=== PATIENT | male | born 1955 | race Caucasian/White ===

== ENCOUNTER 2017-01-02 14:58 | Inpatient (IN) | payer OTHER ==
[~2017-01-02] VITALS: Ht 193 cm; Wt 88.5 kg
--- NOTE | 2017-01-02 15:15 | NUR ---
PT LIGIAA FOR S/P SEIZURE FROM [facility]. PT CANNOT REMEMBER WHAT HAPPENED-POST TICTAL. VSS. MINIMAL ORAL TRAUMA NOTED. SEEN BY MD. SAFETY AND COMFORT MEASUREES PROVIDED. SEIZURE PRECAUTIONS IMPLEMENTED. WILL MONITOR.
[2017-01-02] MEDS ORDERED: LEVETIRACETAM (500MG) 500 MG in IV NS 0.9% 100 ML IV STA (15:22)
[2017-01-02 15:39] LABS: BASOPHILS # (AUTO) 0.2 /CMM (0.0-0.2); BASOPHILS % (AUTO) 1.2 % (0.0-2.0); EOSINOPHILS % (AUTO) 0.2 % (0.0-6.0); HEMATOCRIT 47 % (39-51); HEMOGLOBIN 15.7 g/dL (13.5-17.5); LYMPHOCYTES # (AUTO) 2.7 /CMM (0.8-4.8); LYMPHOCYTES % (AUTO) 18.6 % (20.0-44.0); MEAN CORPUSCULAR HEMOGLOBIN 31 PG (26.0-33.0); MEAN CORPUSCULAR HGB CONC 34 g/dl (31.0-36.0); MEAN CORPUSCULAR VOLUME 92 fL (80-96); MONOCYTES # (AUTO) 0.9 /CMM (0.1-1.30); MONOCYTES % (AUTO) 6.4 % (2.0-12.0); NEUTROPHILS # (AUTO) 10.9 /CMM (1.8-8.9); NEUTROPHILS % (AUTO) 73.6 % (43.0-81.0); PLATELET COUNT (AUTO) 300 /CMM (150-450); RDW COEFFICIENT OF VARIATION 14.2 (11.5-15.0); RED BLOOD CELL COUNT(AUTO) 5.12 MIL/uL (4.5-6.0); WHITE BLOOD COUNT (AUTO) 14.8 K/uL (4.3-11.0)
--- NOTE | 2017-01-02 15:40 | NUR ---
IV ACCESS STARTED. BLOOD DRAW FOR LABS. PT MEDICATED ORDERED.
[2017-01-02 15:55] LABS: ALANINE AMINOTRANSFERASE 44 U/L (12-78); ALBUMIN 3.9 g/dL (3.4-5.0); ALKALINE PHOSPHATASE 156 U/L (46-116); ASPARTATE AMINOTRANSFERASE 62 U/L (15-37); BILIRUBIN,DIRECT 0.2 mg/dL (0.0-0.2); BILIRUBIN,TOTAL 0.9 mg/dL (0.2-1.0); CALCIUM, SERUM 9.3 mg/dL (8.5-10.1); CARBON DIOXIDE 13 mmol/L (21-32); CHLORIDE 104 mmol/L (98-107); CREATININE 1.5 mg/dL (0.6-1.3); GLUCOSE 197 mg/dL (74-106); SODIUM SERUM 142 mmol/L (136-145); UREA NITROGEN, BLOOD 6 mg/dL (7-18)
[2017-01-02 15:57] LABS: TROPONIN I < 0.017 ng/mL (0.00-0.056)
[2017-01-02 16:04] LABS: INR 1.01 (0.87-1.13); PROTHROMBIN TIME 10.5 SECS (9.5-12.7)
[2017-01-02 16:06] LABS: POTASSIUM 2.8 mmol/L (3.5-5.1)
[2017-01-02 16:14] LABS: CREATINE KINASE, TOTAL 230 U/L (39-308)
[2017-01-02 16:16] LABS: ALCOHOL, BLOOD < 3 mg/dL (0-0)
[2017-01-02 16:41] LABS: BILIRUBIN,URINE SMALL (NEGATIVE); BLOOD, URINE Negative Ery/uL (NEGATIVE); KETONES,URINE 15 (NEGATIVE); LEUKOCYTE ESTERASE ,URINE Negative (NEGATIVE); NITRITE, URINE Negative (NEGATIVE); PROTEIN,URINE 100 mg/dl (NEGATIVE); UGLUCOSE Negative (NEGATIVE)
[2017-01-02 16:44] LABS: APPEARANCE,URINE Hazy (CLEAR); COLOR,URINE Dark Yellow (YELLOW)
[2017-01-02] MEDS ORDERED: PIPERACILLIN /TAZOBACTAM 3.375 G in IV D5W 50 ML IV STA (16:48)
[2017-01-02] MEDS ORDERED: VANCOMYCIN 1 GM in IV D5W 250 ML IV STA (16:48)
[2017-01-02 16:53] LABS: BACTERIA,URINE None seen /HPF (None Seen); RBC,URINE 0-3 /HPF (0-2); SQUAMOUS EPITHELIAL CELL,UR Few /HPF (None Seen)
[2017-01-02 16:54] LABS: HYALINE CASTS, URINE Rare /LPF (None Seen); MUCUS,URINE Rare /LPF (None Seen)
[2017-01-02] MEDS ORDERED: IV NS 0.9% 1,000 ML BAG IV ONE (17:00)
[2017-01-02] MEDS ORDERED: MORP60TA4 PO (17:00)
[2017-01-02] MEDS ORDERED: OXYC30TA2 PO (17:00)
[2017-01-02] MEDS ORDERED: DULO60CA45 PO (17:00)
[2017-01-02] MEDS ORDERED: MAG HYDROX/AL HYDROX/SIMETH 30 ML UDC PO PRN (18:00)
[2017-01-02] MEDS ORDERED: MAGNESIUM HYDROXIDE 30 ML UDC PO PRN (18:00)
[2017-01-02] MEDS ORDERED: HYDROCODONE/APAP 5/325MG 1 EACH TABLET PO PRN (18:00)
[2017-01-02] MEDS ORDERED: ZOLPIDEM TARTRATE 5 MG TABLET PO PRN (18:00)
[2017-01-02] MEDS ORDERED: ONDANSETRON HCL/PF 4 MG/2 ML VIAL IVP PRN (18:00)
[2017-01-02] MEDS ORDERED: Z GUARD REMEDY 2 OZ OINT TP PRN (18:00)
[2017-01-02] MEDS ORDERED: MORPHINE SULFATE INJ 2 MG/ML DISP.SYRIN IV PRN (18:00)
[2017-01-02] MEDS ORDERED: ACETAMINOPHEN 325 MG TABLET PO PRN (18:00)
[2017-01-02] MEDS: POTASSIUM CL. PREMIX PERIPHER. 50 ML IV SCH ×2 (18:10→20:03)
[2017-01-02] MEDS ORDERED: POTASSIUM CL. PREMIX PERIPHER. 50 ML ONE (18:16)
[2017-01-02] MEDS ORDERED: POTASSIUM CL. PREMIX PERIPHER. 150 ML ONE (18:39)
--- NOTE | 2017-01-02 18:42 | NUR ---
REPORT GIVEN TO SUZANNE MABRY FOR TELE 120.
--- NOTE | 2017-01-02 18:42 | NUR ---
RN NOTES RECEIVED PT FROM ER VIA [facility] S/P SEIZURE. A&OX3, NO SOB OR DISTRESS NOTED ON ROOM AIR SATING 97%. RFA 20GUAGE IV SITE DRY AND INTACT. SKIN INTACT. WILL ENDORSE REPORT TO ONCOMING SHIFT.
[2017-01-02 18:47] VITALS: BP 152/90
--- NOTE | 2017-01-02 18:48 | NUR ---
REMAINING POTASSIUM BAGS ENDORSED TO SUZANNE MABRY
[2017-01-02] MEDS: IV NS 0.9% 1,000 ML IV PRN (18:54)
--- NOTE | 2017-01-02 19:10 | NUR ---
TAMMIE RN OPENING NOTES REPORT RECEIVED FROM AM RN. PATIENT A/A/O X3, ABLE TO MAKE NEEDS KNOWN. BREATHING EVEN AND UNLABORED, ON ROOM AIR. DENIES SOB OR DIFFICULTY BREATHING. ON TELE SINUS RHYTHM W/ PULSES PRESENT. SKIN INTACT AND WARM TO TOUCH. RIGHT FOREARM IV #20 INTACT AND PATENT W/ DRESSING CDI. IV FLUIDS RUNNING @ 100 ML/HR. PATIENT C/O LOWER BACK PAIN, PAIN MED TO BE GIVEN. SEIZURE AND SAFETY PRECAUTIONS IN PLACE W/ PADDED SIDE RAILS UP, BED LOCKED IN LOWEST POSITION AND CALL LIGHT WITHIN REACH. WILL CONTINUE TO MONITOR.
[2017-01-02 20:00] VITALS: BP 101/65
[2017-01-02] MEDS: MORPHINE SULFATE SR 15 MG TABLET.SA PO SCH (20:09)
[2017-01-02] MEDS: Potassium Chloride 10 MEQ, LIDOCAINE HCL/PF 1% 1 ML in IV D5W 50 ML IV SCH ×2 (21:38→22:28)
[2017-01-02] MEDS: LEVETIRACETAM (500MG) 500 MG in IV NS 0.9% 100 ML IV SCH (22:14)
[2017-01-02] MEDS: oxyCODONE HCL SR 20MG TAB.SR.12H PO SCH (22:29)
[2017-01-03] VITALS: BP 103/75
[2017-01-03 04:00] VITALS: BP 109/77
[2017-01-03 06:50] LABS: BASOPHILS % (AUTO) 0.4 % (0.0-2.0); EOSINOPHILS # (AUTO) 0.2 /CMM (0.0-0.7); EOSINOPHILS % (AUTO) 1.3 % (0.0-6.0); HEMATOCRIT 40 % (39-51); HEMOGLOBIN 13.4 g/dL (13.5-17.5); LYMPHOCYTES # (AUTO) 2.7 /CMM (0.8-4.8); LYMPHOCYTES % (AUTO) 22.5 % (20.0-44.0); MEAN CORPUSCULAR HEMOGLOBIN 31 PG (26.0-33.0); MEAN CORPUSCULAR HGB CONC 33 g/dl (31.0-36.0); MEAN CORPUSCULAR VOLUME 93 fL (80-96); MONOCYTES # (AUTO) 0.6 /CMM (0.1-1.30); MONOCYTES % (AUTO) 5.3 % (2.0-12.0); NEUTROPHILS # (AUTO) 8.4 /CMM (1.8-8.9); NEUTROPHILS % (AUTO) 70.5 % (43.0-81.0); PLATELET COUNT (AUTO) 223 /CMM (150-450); RDW COEFFICIENT OF VARIATION 15.7 (11.5-15.0); RED BLOOD CELL COUNT(AUTO) 4.36 MIL/uL (4.5-6.0)
--- NOTE | 2017-01-03 07:00 | NUR ---
RN NOTES RECEIVED PT ON BED, A/O X3, ABLE TO MAKE NEEDS KNOWN. BREATHING EVEN AND UNLABORED, ON 02 2L N/C, O2 SAT 94%, NO DISTRESS NOTED , ON TELE SINUS RHYTHM IN 90'S , RIGHT FOREARM IV G 20 INTACT AND PATENT, IV FLUIDS NS RUNNING @ 125 ML/HR. SEIZURE AND SAFETY PRECAUTIONS IN PLACE W/ PADDED SIDE RAILS UP, BED LOCKED IN LOWEST POSITION , CALL LIGHT WITHIN REACH. WILL CONTINUE TO MONITOR PT AND NOTIFY MD FOR ANY SIGNIFICANT CHANGES.
[2017-01-03 07:24] LABS: BILIRUBIN,TOTAL 0.7 mg/dL (0.2-1.0); CALCIUM, SERUM 8.2 mg/dL (8.5-10.1); CREATININE 0.9 mg/dL (0.6-1.3); MAGNESIUM 2.1 mg/dL (1.8-2.4); PHOSPHORUS 3.8 mg/dL (2.5-4.9); POTASSIUM 3.2 mmol/L (3.5-5.1); TOTAL PROTEIN, SERUM 6.6 g/dL (6.4-8.2)
[2017-01-03] MEDS ORDERED: PANTOPRAZOLE 40 MG TABLET.DR PO SCH (07:30)
[2017-01-03 08:00] VITALS: BP 99/67
[2017-01-03 08:00] LABS: THYROID STIMULATING HORMONE 4.9 uIU/mL (0.358-3.74)
[2017-01-03] MEDS: IV NS 0.9% 1,000 ML IV PRN (08:04)
[2017-01-03] MEDS: oxyCODONE HCL SR 20MG TAB.SR.12H PO SCH (08:05)
[2017-01-03] MEDS: MORPHINE SULFATE SR 15 MG TABLET.SA PO SCH (08:06)
[2017-01-03] MEDS: LEVETIRACETAM (500MG) 500 MG in IV NS 0.9% 100 ML IV SCH (08:06)
[2017-01-03 08:16] VITALS: BP 99/67
[2017-01-03] MEDS ORDERED: DULOXETINE HCL 30 MG CAPSULE.DR PO SCH (09:00)
--- NOTE | 2017-01-03 11:51 | NUR ---
RN NOTES LUMBAR BRACE APPLIED PER MD ORDER
[2017-01-03 12:00] VITALS: BP 106/73
[2017-01-03] MEDS ORDERED: POTASSIUM CHLORIDE 20 MEQ TAB.PRT.SR PO SCH (12:00)
[2017-01-03] MEDS: POTASSIUM CHLORIDE 20 MEQ POWDER PACKET PO SCH ×2 (12:18→13:11)
--- NOTE | 2017-01-03 15:26 | NUR ---
RN NOTES EEG DONE AND EEG RESULTS CAN BE FOLLOWED UP OUT PT PER DR BARTLETT ORDER , DISCHARGE INSTRUCTION GIVEN TO PT , PT VERBALIZERS UNDERSTANDING , H/L REMOVED, PT PERRI ANY PROBLEM, PT WANT TO GO TO HIS PHARMACY NEXT TO THE HOSPITAL AND THEN GO HOME WITH [facility], PT LEFT THE FLOOR TO [facility] ACCOMPANIED BY STAFF MEMBERS IN STABLE CONDITION .
[2017-01-03] MEDS ORDERED: DONEPEZIL 5 MG TABLET PO SCH (22:00)
== END 2017-01-03 15:39 | disposition home or self-care (01) | DRG 53 ==
LOC: ER 15:00 → TELE 16:27 → TELE-TD 17:56
PROVIDERS: ADMIT Family Medicine; ATTEND Family Medicine
DX: R56.9 Unspecified convulsions (principal); N17.0 Acute kidney failure with tubular necrosis; E87.2 Acidosis; F17.210 Nicotine dependence, cigarettes, uncomplicated; E87.6 Hypokalemia; D72.829 Elevated white blood cell count, unspecified; R55 Syncope and collapse; M48.56XA Collapsed vertebra, not elsewhere classified, lumbar region, initial encounter for fracture; G89.29 Other chronic pain; M48.06 Spinal stenosis, lumbar region; R82.99 Other abnormal findings in urine
CPT/HCPCS: 36415; 70450-TC; 71010-TC; 72131-TC; 80048-TC; 80053-TC; 80076-TC; 80305; 81000-TC; 82550-TC; 82962-TC; 83605-TC; 83735-TC; 84100-TC; 84439-TC; 84443-TC; 84484-TC; 85025-TC; 85730-TC; 87040-TC; 87086-TC; 95819-TC; A4606; G0480; J1953; J2543; J3370; J3480; J3490; J7030; J7060; Z7610